=== PATIENT | male | born 1985 | race Caucasian/White ===

== ENCOUNTER 2016-10-25 09:53 | Emergency (ER) | payer BC, OTHER ==
[2016-10-25 09:58] VITALS: BP 145/90; PULSE 82; TEMP 98.8; BMI 28.0
[2016-10-25] MEDS ORDERED: ACETAMINOPHEN 325 MG TABLET (FP) PO ONE (10:19)
[2016-10-25] MEDS ORDERED: ACETAMINOPHEN 325 MG TABLET (FP) ONE (10:30)
--- NOTE | 2016-10-25 11:04 | PDOC ---
History of Present Illness - General Chief Complaint: Pain, Acute Stated Complaint: LEFT ANKLE PAIN Time Seen by Provider: 10/25/16 09:55 History Source: Patient Exam Limitations: No Limitations - History of Present Illness Initial Comments: 10/25/16 11:15 31y M no pmhx presents with complaint of L ankle pain. Pt states he was at a construction site and there was rocks/debris and he externally rotated his ankle , he fell but was able to catch himself with his arms. no other injuires or pain. pt has not taken any pain meds prior to presentation. no hip pain/knee pain. no numbness/tingling/weakness. no back pain, headache. Past History - Past Medical History Allergies/Adverse Reactions: Allergies Allergy/AdvReac Type Severity Reaction Status Date / Time No Known Allergies Allergy Verified 10/25/16 09:53 Home Medications: Ambulatory Orders NK [No Known Home Medication] 10/25/16 Anemia: No Asthma: No Cancer: No Cardiac Disorders: No CVA: No COPD: No CHF: No Dementia: No Diabetes: No GI Disorders: No Disorders: No HTN: No Hypercholesterolemia: No Liver Disease: No Seizures: No Thyroid Disease: No - Surgical History Appendectomy: Yes - Psycho/Social/Smoking Cessation Hx Anxiety: No Suicidal Ideation: No Smoking History: Former smoker Have you smoked in the past 12 months: No If you are a former smoker, when did you quit?: 2010 Information on smoking cessation initiated: No Hx Alcohol Use: Yes Drug/Substance Use Hx: No Substance Use Type: Alcohol Hx Substance Use Treatment: No Review of Systems - Review of Systems Able to Perform ROS?: Yes Comments:: 10/25/16 11:16 Constitutional - no reported weakness, Musculskelatal - + joint swelling, ankle pain, no reported back pain, skin - + bruising, no reported erythema, rash neurological: no reported headache, numbness, focal weakness, tingling, hematologic: no reported anemia, easy bruising, easy bleeding *Physical Exam - Vital Signs Last Vital Signs Temp Pulse Resp BP Pulse Ox 98.8 F 82 16 145/90 100 10/25/16 09:53 10/25/16 09:53 10/25/16 09:53 10/25/16 09:53 10/25/16 09:53 - Physical Exam Comments: 10/25/16 11:19 GENERAL: The patient is awake, alert, and fully oriented, Nontoxic - in no acute distress. HEAD: Normocephalic, atraumatic EXTREMITIES: Normal range of motion of hip/knees b/l, moveiment of L ankle limited due to pain, LLE shows mild soft tissue swelling, ecchymosis and focal tenderness along lateral malleolus, no localized tenderness to foot or at 5th metatarsal, no tenderneses on hightower/proximal tib/fib. NEUROLOGICAL: No facial assymetry, Normal speech, normal sensation, DP pulses in LE intact SKIN: Warm, Dry, normal turgor, Medical Decision Making - Medical Decision Making 10/25/16 11:21 sprain vs ankle fx will give tylenol for pain pending xray to r/o fx 10/25/16 11:43 no fx on my wet read of ankle pt placed in air cast RICE therapy, will have pt fu with PMD, and if pain presistent fu with ortho return precautions were discussed I discussed the physical exam findings, ancillary test results and final diagnoses with the patient. I answered all of the patient's questions. The patient was satisfied with the care received and felt comfortable with the discharge plan and treatment plan. The patient will call their primary care physician within 24 hours to arrange follow-up and will return to the Emergency Department with any new, persistent or worsening symptoms. *DC/Admit/Observation/Transfer Diagnosis at time of Disposition: Left ankle sprain Qualifiers: Encounter type: initial encounter Involved ligament of ankle: unspecified ligament Qualified Code(s): S93.402A - Sprain of unspecified ligament of left ankle, initial encounter - Discharge Dispostion Disposition: HOME Condition at time of disposition: Stable Admit: No - Referrals Referrals: Elizabeth Fleming MD [Non Staff, Medical] - Luca Rubio MD [Staff Physician] - - Patient Instructions Printed Discharge Instructions: DI for Ankle Sprain Additional Instructions: Return to the emergency department immediately with ANY new, persistent or worsening symptoms. Keep your extremity elevated. Apply ice to reduce swelling. Take ibuprofen or tylenol for pain. Refrained from physical activity until reassessed. You MUST call and follow up with orthopedics if you still have any pain beyond 4 -5 days for further evaluation of your symptoms. Results were discussed with you. Please make sure your doctor reviews the results of your emergency evaluation. Print Language: CHINESE - Post Discharge Activity Work/School Note: Back to Work
== END 2016-10-25 11:55 | disposition home or self-care (01) ==
LOC: FER 09:53
PROC: 2W3TX1Z Immobilization of Left Foot using Splint (ICD-10-PCS; principal; 2016-10-25)
DX: S93.402A Sprain of unspecified ligament of left ankle, initial encounter (principal); X58.XXXA Exposure to other specified factors, initial encounter; Y93.89 Activity, other specified; Y92.69 Other specified industrial and construction area as the place of occurrence of the external cause; Y99.0 Civilian activity done for income or pay; Z87.891 Personal history of nicotine dependence
CPT/HCPCS: 73610-TC-LT; 73630-TC-LT; 99282-25